=== PATIENT | male | born 2000 | race Caucasian/White ===

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

== ENCOUNTER 2019-03-08 01:02 | Emergency (ER) | payer MEDICAID, OTHER ==
[~2019-03-08] VITALS: Ht 165 cm; Wt 65.9 kg
[~2019-03-08 01:02] MED LIST changes: +FEXO-45 PO; +FEXO-46 PO; +HYDR100C2 PO; +HYDR50TA76 PO; +MIRT15TA PO; +MIRT15TA6 PO; +SERT100T PO; +SERT100T8 PO
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
== END 2019-03-08 01:25 | disposition home or self-care (01) ==
LOC: EDUNIT# 01:02 → ER 01:04
DX: S06.0X0A Concussion without loss of consciousness, initial encounter (principal); S01.511A Laceration without foreign body of lip, initial encounter; I48.92 Unspecified atrial flutter; F41.9 Anxiety disorder, unspecified; F17.210 Nicotine dependence, cigarettes, uncomplicated; Z90.89 Acquired absence of other organs; Z82.49 Family history of ischemic heart disease and other diseases of the circulatory system; Y04.8XXA Assault by other bodily force, initial encounter; Y92.481 Parking lot as the place of occurrence of the external cause
CPT/HCPCS: 99283

== ENCOUNTER → 2021-03-21 | Outpatient (CLI) | payer MEDICAID ==
[~2021-03-21] MED LIST changes: +MIRT-68 PO; +MIRT-96 PO; -MIRT15TA PO; -MIRT15TA6 PO; +SERT-414 PO; -SERT100T8 PO
[2021-03-21 10:40] VITALS: BP 121/80
== END ==
LOC: CARD 09:30
PROVIDERS: ATTEND Internal Medicine Cardiovascular Disease
DX: R00.2 Palpitations (principal)
CPT/HCPCS: 93306; 93351